=== PATIENT | male | born 1945 | race Caucasian/White ===

== ENCOUNTER → 2016-05-04 | Outpatient (CLI) | payer MEDICARE, MEDICAID ==
[~2016-05-04] MED LIST: ATOR20TA54; DIPH1TAB45 PO; FLUT16SP; FLUT250D; HCT25T PO; METH4TAB27 PO; ONDA4TAB8 PO; PROP160C2; PROP20TA5 PO; RAME8T; TERA5CAP3 PO; VERA100C6; VERA40TA2 PO; VITA1CAP PO
[2016-05-04 17:20] LABS: ALBUMIN 4.1 g/dL (3.4-5.0); PHOSPHORUS 4.9 mg/dL (2.4-4.9)
== END ==
LOC: LAB 16:23
PROVIDERS: ATTEND Internal Medicine Nephrology
DX: N18.4 Chronic kidney disease, stage 4 (severe) (principal)
CPT/HCPCS: 36415; 80069; 83970

== ENCOUNTER → 2016-05-13 | Outpatient (CLI) | payer MEDICARE, MEDICAID | LOC: EMS 03:27 | DX: Z53.20 Procedure and treatment not carried out because of patient's decision for unspecified reasons (principal) ==

== ENCOUNTER 2016-06-14 19:47 | Emergency (ER) | payer MEDICARE, MEDICAID ==
[~2016-06-14] VITALS: Ht 177.8 cm; Wt 81.8 kg
[2016-06-14] MEDS ORDERED: ALBUTEROL 0.083% NEB SOLUTION 2.5 MG/3 ML VIAL INH ONE (20:15)
[2016-06-14 20:54] LABS: BASOPHILS % (AUTO) 0 % (0-2); EOSINOPHILS # (AUTO) 0.2 10^3uL; EOSINOPHILS % (AUTO) 2 % (0-4); LYMPHOCYTES # (AUTO) 1.3 X10^3; MEAN CORPUSCULAR HGB CONC 34.6 g/dL (31.0-37.0); MEAN PLATELET VOLUME 10.5 FL (6.0-9.5); MONOCYTES # (AUTO) 0.8 X10^3; MONOCYTES % (AUTO) 11 % (3-11); NEUTROPHILS # (AUTO) 4.9 X10^3; NEUTROPHILS % (AUTO) 68 % (51-67); PLATELET COUNT 362 10^3uL (150-450); WHITE BLOOD COUNT 7.17 10^3uL (4.0-11.0)
[2016-06-14 21:09] LABS: MEAN CORPUSCULAR HEMOGLOBIN 35.7 PG (26.0-34.0); MEAN CORPUSCULAR VOLUME 103 FL (80-100)
[2016-06-14 21:22] LABS: ALBUMIN 3.7 g/dL (3.4-5.0); ANION GAP 14.9 MEQ/L (3-15); CALCULATED IONIZED CALCIUM 3.6 mg/dL (3.8-4.6); TOTAL PROTEIN 6.9 g/dL (6.4-8.5)
[2016-06-14 23:17] VITALS: BP 137/86
== END 2016-06-14 23:21 | disposition home or self-care (01) ==
LOC: ED 19:48
DX: J45.901 Unspecified asthma with (acute) exacerbation (principal)
CPT/HCPCS: 36415; 71010; 80053; 85025; 86140; 87070; 87486; 87581; 87633; 87651; 87798; 94640; 96360; 99283; J7030

== ENCOUNTER → 2016-07-29 | Outpatient (CLI) | payer MEDICARE, MEDICAID ==
--- NOTE | 2016-07-29 17:26 | Diagnostic Imaging Report ---
INDICATION: Bilateral leg swelling. Bilateral lower extremity venous Doppler study was performed in the routine fashion with color flow Doppler and waveform analysis. FINDINGS: The common femoral veins, superficial femoral veins, popliteal veins and visualized portion of the tibial veins show normal compressibility and venous flow patterns. There is normal augmentation. There is subcutaneous edema in both lower extremities. IMPRESSION: No evidence of deep vein thrombosis in the major veins of both legs. Dictated by: Dictated on workstation # [id number]
== END ==
LOC: RAD 16:34
PROVIDERS: ATTEND Family Medicine
DX: M79.89 Other specified soft tissue disorders (principal)
CPT/HCPCS: 93970

== ENCOUNTER → 2016-09-02 | Outpatient (CLI) | payer MEDICARE, MEDICAID ==
[2016-09-02 16:21] LABS: ALBUMIN 4.2 g/dL (3.4-5.0); ANION GAP 20.4 MEQ/L (3-15)
== END ==
LOC: LAB 15:37
PROVIDERS: ATTEND Internal Medicine Nephrology
DX: N18.4 Chronic kidney disease, stage 4 (severe) (principal)
CPT/HCPCS: 36415; 80069; 83970